=== PATIENT | male | born 1960 | race African-American/Black ===

== ENCOUNTER 2017-12-15 18:05 | Inpatient (IN) | payer BC ==
[2017-12-15] MEDS ORDERED: NORMAL SALINE 1000 ML 1,000 ML IV ONE (18:52)
[2017-12-15] MEDS ORDERED: VANCOMYCIN HCL INJ 1000 MG VIAL IV ONE (19:06)
--- NOTE | 2017-12-15 19:08 | ER Document Report ---
ED Medical Screen (RME) - General Chief Complaint: Weakness Stated Complaint: DIZZY Time Seen by Provider: 12/15/17 18:49 Notes: Patient presents with 2 days of fatigue chills lethargy that became worse today. Patient primary care doctor is Dr. Messer. Patient has history of bilateral lymphedema, he states that his left lower extremity has been swelling and is hot. Denies any recent falls or trauma. He also states he has developed diarrhea today that is been very dark and black. He is not on any blood thinners. Denies any traveling out of the country or camping recently. I have greeted and performed a rapid initial assessment of this patient. A comprehensive ED assessment and evaluation of the patient, analysis of test results and completion of the medical decision making process will be conducted by additional ED providers. PHYSICAL EXAMINATION: GENERAL: Well-appearing, well-nourished and in no acute distress. HEAD: Atraumatic, normocephalic. EYES: Pupils equal round extraocular movements intact, conjunctiva are normal. ENT: Nares patent NECK: Normal range of motion LUNGS: No respiratory distress Musculoskeletal: Normal range of motion, b/l swelling of lower extemities, L>>R , warmth and erythema of left lower extremity NEUROLOGICAL: Normal speech, normal gait. PSYCH: Normal mood, normal affect. SKIN: Warm, Dry, normal turgor, no rashes or lesions noted. TRAVEL OUTSIDE OF THE [place] IN LAST 30 DAYS: No - Related Data Allergies/Adverse Reactions: Dust, Pollen Allergy (Intermediate, Uncoded 01/03/15 08:43) Dry Eyes,WATERY EYES Past Medical History - Past Medical History Cardiac Medical History: Reports: Hx Hypertension Denies: Hx Coronary Artery Disease, Hx Heart Attack Pulmonary Medical History: Reports: Hx Asthma Denies: Hx Bronchitis, Hx COPD, Hx Pneumonia Neurological Medical History: Denies: Hx Cerebrovascular Accident, Hx Seizures Renal/ Medical History: Denies: Hx Peritoneal Dialysis Musculoskeltal Medical History: Denies Hx Arthritis - Immunizations Hx Diphtheria, Pertussis, Tetanus Vaccination: No Physical Exam - Vital signs Vitals: Temp Pulse Resp BP Pulse Ox 101.9 F H 95 16 135/65 H 95 12/15/17 18:10 12/15/17 18:10 12/15/17 18:10 12/15/17 18:10 12/15/17 18:10 Course - Vital Signs Vital signs: Temp Pulse Resp BP Pulse Ox 101.9 F H 95 16 135/65 H 95 12/15/17 18:10 12/15/17 18:10 12/15/17 18:10 12/15/17 18:10 12/15/17 18:10 Doctor's Discharge - Discharge Referrals: SUSAN MESSER MD [Primary Care Provider] - Follow up as needed
[2017-12-15 19:28] LABS: APPEARANCE,URINE CLEAR; BILIRUBIN,URINE NEGATIVE (NEGATIVE); COLOR,URINE YELLOW; GLUCOSE, URINE NEGATIVE (NEGATIVE); KETONES,URINE NEGATIVE (NEGATIVE); LEUKOCYTE ESTERASE,URINE NEGATIVE (NEGATIVE); NITRITE,URINE NEGATIVE (NEGATIVE); PROTEIN,URINE NEGATIVE (NEGATIVE); URINE SPECIFIC GRAVITY 1.014
--- NOTE | 2017-12-15 19:54 | RADIOLOGY REPORT (SQ) ---
EXAM DESCRIPTION: TIBIA FIBULA LEFT COMPLETED DATE/TIME: 12/15/2017 7:35 pm REASON FOR STUDY: swelling COMPARISON: None. NUMBER OF VIEWS: Two views. TECHNIQUE: Two radiographic images acquired of the left tibia and fibula to include the knee and ank le in at least one projection. LIMITATIONS: None. FINDINGS: MINERALIZATION: Normal. BONES: No acute fracture or dislocation. No worrisome bone lesions. SOFT TISSUES: No obvious swelling or foreign body. OTHER: No other significant finding. IMPRESSION: NEGATIVE STUDY OF THE LEFT TIBIA AND FIBULA. NO RADIOGRAPHIC EVIDENCE OF ACUTE INJURY. TECHNICAL DOCUMENTATION: JOB ID: [id number] [employer]- All Rights Reserved Reading location - IP/workstation name: [email or web address]
--- NOTE | 2017-12-15 19:55 | RADIOLOGY REPORT (SQ) ---
EXAM DESCRIPTION: FOOT LEFT COMPLETE COMPLETED DATE/TIME: 12/15/2017 7:35 pm REASON FOR STUDY: swelling COMPARISON: None. NUMBER OF VIEWS: Three views. TECHNIQUE: AP, lateral and oblique radiographic images acquired of the left foot. LIMITATIONS: None. FINDINGS: MINERALIZATION: Normal. BONES: Plantar calcaneal spur. No acute osseous abnormality. JOINTS: No effusions. SOFT TISSUES: Soft tissue swelling. OTHER: No other significant finding. IMPRESSION: Soft tissue swelling with no fracture. Calcaneal spur. TECHNICAL DOCUMENTATION: JOB ID: [id number] [employer]- All Rights Reserved Reading location - IP/workstation name: [email or web address]
[2017-12-15 20:21] LABS: ABSOLUTE BASOPHILS # (AUTO) 0.1 10^3/uL (0.0-0.2); ABSOLUTE LYMPHOCYTES (AUTO) 1.2 10^3/uL (0.5-4.7); ABSOLUTE MONOCYTES (AUTO) 1.1 10^3/uL (0.1-1.4); ABSOLUTE NEUT (AUTO) 11.2 10^3/uL (1.7-8.2); BASOPHILS % (AUTO) 0.5 % (0-2); EOSINOPHILS % (AUTO) 0.2 % (0-6); HEMATOCRIT 39.9 % (37.9-51.0); HEMOGLOBIN 13.3 g/dL (13.5-17.0); MEAN CORPUSCULAR HGB CONC 33.4 g/dL (32.0-36.0); MEAN CORPUSCULAR VOLUME 87 fl (80-97); MONOCYTES % (AUTO) 8.3 % (3-13); PLATELET COUNT 208 10^3/uL (150-450); RED BLOOD COUNT 4.59 10^6/uL (4.35-5.55); TOTAL CELLS COUNTED % (AUTO) 100 %; WHITE BLOOD COUNT 13.7 10^3/uL (4.0-10.5)
[2017-12-15 20:40] LABS: ALANINE AMINOTRANSFERASE 48 U/L (21-72); ALBUMIN 4.2 g/dL (3.5-5.0); ALKALINE PHOSPHATASE 66 U/L (38-126); ANION GAP 12 (5-19); ASPARTATE AMINO TRANSFERASE 49 U/L (17-59); BILIRUBIN,DIRECT 0.3 mg/dL (0.0-0.4); BILIRUBIN,TOTAL 0.9 mg/dL (0.2-1.3); BLOOD UREA NITROGEN 17 mg/dL (7-20); CALCIUM 8.9 mg/dL (8.4-10.2); CARBON DIOXIDE 31 mmol/L (22-30); CHLORIDE 97 mmol/L (98-107); GLUCOSE 106 mg/dL (75-110); POTASSIUM 3.5 mmol/L (3.6-5.0); SODIUM 139.7 mmol/L (137-145)
[2017-12-15] MEDS ORDERED: MORPHINE SULFATE 10 MG/ML INJ IV ONE (21:46)
--- NOTE | 2017-12-15 22:32 | EKG REPORT ---
SEVERITY:- BORDERLINE ECG - SINUS RHYTHM BORDERLINE T WAVE ABNORMALITIES : Confirmed by: Virgei Tate MD 15-Dec-2017 22:31:36
--- NOTE | 2017-12-15 22:47 | ER Document Report ---
ED General - General Chief Complaint: Weakness Stated Complaint: DIZZY Time Seen by Provider: 12/15/17 18:49 Information source: Patient TRAVEL OUTSIDE OF THE [place] IN LAST 30 DAYS: No - HPI Patient complains to provider of: Swelling and pain in the left lower leg Onset: Other - Patient has known history of lymphedema left lower extremity has had worsening swelling and pain over the last day as well as fevers at home and a general feeling of being unwell. Has never had anything like this in the past , it is making it difficult for him to get up and around. Nothing seems to make it any better, nothing seems to make it worse. He does have some pain in the leg which is a throbbing quality. - Related Data Allergies/Adverse Reactions: Dust, Pollen Allergy (Intermediate, Uncoded 01/03/15 08:43) Dry Eyes,WATERY EYES Past Medical History - General Information source: Patient - Social History Smoking Status: Never Smoker Family History: None Patient has suicidal ideation: No Patient has homicidal ideation: No - Past Medical History Cardiac Medical History: Reports: Hx Hypertension Denies: Hx Coronary Artery Disease, Hx Heart Attack Pulmonary Medical History: Reports: Hx Asthma Denies: Hx Bronchitis, Hx COPD, Hx Pneumonia Neurological Medical History: Denies: Hx Cerebrovascular Accident, Hx Seizures Renal/ Medical History: Denies: Hx Peritoneal Dialysis Musculoskeletal Medical History: Denies Hx Arthritis - Immunizations Hx Diphtheria, Pertussis, Tetanus Vaccination: No Review of Systems - Review of Systems -: Yes All other systems reviewed and negative Physical Exam - Vital signs Vitals: Temp Pulse Resp BP Pulse Ox 101.9 F H 95 16 135/65 H 95 12/15/17 18:10 12/15/17 18:10 12/15/17 18:10 12/15/17 18:10 12/15/17 18:10 - General General appearance: Appears well In distress: None - HEENT Head: Normocephalic Eyes: Normal Conjunctiva: Normal - Respiratory Respiratory status: No respiratory distress Chest status: Nontender Breath sounds: Normal Chest palpation: Normal - Cardiovascular Rhythm: Tachycardia Heart sounds: Normal auscultation Murmur: No - Abdominal Inspection: Normal Distension: No distension Bowel sounds: Normal - Back Back: Normal - Extremities General upper extremity: Normal inspection General lower extremity: Other - The lower extremities are swollen, the left greater than the right, there is skin cracking along the left lower extremity inferior to the level of the knee, there is erythema which is notable though it is difficult to distinguish as this patient has dark complexion, skin is warm to the touch no obvious bullae, no disclamation Course - Re-evaluation Re-evalutation: 12/16/17 04:20 This 57-year-old man with a history of lymphedema and presented for evaluation of swelling fever and pain in the lower extremity. On examination he clinically has a cellulitis in the left lower extremity he does feel somewhat unwell generally. Will obtain labs as well as blood cultures and initiate treatment with antibiotics for presumptive staph or strep source. Have contacted on-call hospitalist for admission of this patient. Following admission on-call hospitalist notes that this is a patient of Dr. Santiago and as such he has admitted him to his service. We will plan for continued monitoring in emergency department and assessment is necessary with the expectation of inpatient admission for IV antibiotics and reassessment. Patient's heart rate improved with the administration of fluids and antibiotics as well as Tylenol for fever. - Vital Signs Vital signs: Temp Pulse Resp BP Pulse Ox 101.9 F H 95 16 135/65 H 95 12/15/17 18:10 12/15/17 18:10 12/15/17 18:10 12/15/17 18:10 12/15/17 18:10 - Laboratory Result Diagrams: 12/16/17 02:43 12/16/17 02:43 Laboratory results interpreted by me: 12/15/17 12/15/17 12/15/17 19:00 20:06 20:06 WBC 13.7 H Hgb 13.3 L RDW 15.0 H Seg Neutrophils % 82.0 H Lymphocytes % 9.0 L Absolute Neutrophils 11.2 H Potassium 3.5 L Chloride 97 L Carbon Dioxide 31 H Urine Urobilinogen 2.0 H Discharge - Discharge Clinical Impression: Cellulitis Qualifiers: Site of cellulitis: extremity Site of cellulitis of extremity: lower extremity Laterality: left Qualified Code(s): L03.116 - Cellulitis of left lower limb Condition: Fair Disposition: ADMITTED INPATIENT Admitting Provider: Hospitalist Unit Admitted: Medical Floor
[2017-12-15] MEDS ORDERED: ACETAMINOPHEN 325 MG TABLET PO ONE (22:48)
[2017-12-15] MEDS ORDERED: ONDANSETRON HCL INJ/PF 4 MG/2 ML SDV IV PRN (23:41)
[2017-12-15] MEDS ORDERED: MAG HYDROX/AL HYDROX/SIMETH SUSP 30 ML UDCUP PO PRN (23:41)
[2017-12-15] MEDS ORDERED: ZOLPIDEM TARTRATE 5 MG TABLET PO PRN (23:41)
[2017-12-15] MEDS ORDERED: MAGNESIUM HYDROXIDE SUSP 30 ML UDCUP PO PRN (23:41)
[2017-12-15] MEDS ORDERED: ACETAMINOPHEN 325 MG TABLET PO PRN (23:41)
[2017-12-15] MEDS ORDERED: PIPERACILLIN/TAZOBACTAM 3.375 GM VIAL IV SCH (23:45)
[2017-12-15] MEDS ORDERED: MORPHINE SULFATE 10 MG/ML INJ IV PRN (23:53)
[2017-12-16] MEDS: OXYCODONE-ACETAMINOPHEN 5-325 MG TABLET PO PRN ×5 (01:07→21:45)
[2017-12-16] MEDS ORDERED: (PENDING PHARMACY ID) (Oxycodone Hcl/Acetaminophen [Percocet 10-325 Mg Tablet] 1 EACH) PO PRN (02:17)
[2017-12-16] MEDS ORDERED: OXYCODONE-ACETAMINOPHEN 5-325 MG TABLET PO PRN (02:17)
--- NOTE | 2017-12-16 02:20 | PDOC H&P ---
History of Present Illness Admission Date/PCP: 12/15/17 23:00 SUSAN MESSER MD Patient complains of: Chills, dizziness, left lower extremity swelling and pain History of Present Illness: JERZY DELGADO is a 57 year old -[place] pleasant male with history of hypertension and asthma as well as left lower extremity lymphedema presented to the emergency room with acute onset of worsening left lower extremity pain and swelling over the last couple of days as well as chills and dizziness since yesterday. He denied any nausea or vomiting or abdominal pain. He admitted to mild diarrhea with dark stools however with no melena or bright red bleeding per rectum. The patient presented to the emergency room he was febrile with a temperature of 101.9, pulse 95, respiratory rate of 16, blood pressure 135/65 and a pulse oximetry of 95% on room air. His labs were remarkable for borderline potassium at 3.5 a CO2 of 31 and chloride of 97. His CBC showed leukocytosis of 13.7 with neutrophilia. Hemoglobin was 13.3 hematocrit 39.9 with platelets of 208. Urinalysis was unremarkable. Tib-fib x-ray as well as foot x-ray showed no evidence for fracture. EKG showed normal sinus rhythm with a rate of 83 and flat T waves in aVL. The patient was given hydration with IV normal saline as well as IV morphine sulfate 4 mg and vancomycin as well as Tylenol 650 mg p.o. He will be admitted to a medically monitored bed Dr. Messer for further evaluation and management. Past Medical History Cardiac Medical History: Reports: Hypertension Denies: Coronary Artery Disease, Myocardial Infarction Pulmonary Medical History: Reports: Asthma Denies: Bronchitis, Chronic Obstructive Pulmonary Disease (COPD), Pneumonia Neurological Medical History: Denies: Seizures Musculoskeltal Medical History: Denies: Arthritis Hematology: Denies: Anemia Past Surgical History Past Surgical History: Reports: Herniorrhaphy Social History Smoking Status: Never Smoker Frequency of Alcohol Use: None Hx Recreational Drug Use: No Family History Family History: DM, Hypertension, Malignancy Parental Family History Reviewed: Yes Children Family History Reviewed: Yes Sibling(s) Family History Reviewed.: Yes Medication/Allergy Home Medications: Ergocalciferol (Vitamin D2) [Vitamin D2] 1.25 mg PO Q7D 11/08/14 Metformin HCl [Glucophage] 1,000 mg PO DAILY 11/08/14 Metoprolol Succinate 200 mg PO DAILY 11/08/14 Olmesartan/Amlodipin/Hcthiazid [Tribenzor 40-10-25 mg Tablet] 1 each PO DAILY Oxycodone HCl/Acetaminophen [Percocet 10-325 mg Tablet] 1 each PO ASDIR PRN 05/25 Tamsulosin HCl 0.4 mg PO DAILY 11/08/14 Oxycodone HCl/Acetaminophen [Percocet 5-325 mg Tablet] 1 - 2 tab PO ASDIR PRN # 15 tablet 01/10/15 Allergies/Adverse Reactions: Dust, Pollen Allergy (Intermediate, Uncoded 01/03/15 08:43) Dry Eyes,WATERY EYES Review of Systems Review of Systems: As per history of present illness. All pertinent systems were reviewed above. Constitutional, HEENT, cardiovascular, respiratory, GI, , musculoskeletal, neuro, psychiatric, endocrine, integumentary and hematologic systems were reviewed and are otherwise negative/unremarkable except for positive findings mentioned above in the HPI. Physical Exam Vital Signs: Temp Pulse Resp BP Pulse Ox 101.9 F H 95 16 135/65 H 95 12/15/17 18:10 12/15/17 18:10 12/15/17 18:10 12/15/17 18:10 12/15/17 18:10 Exam: Generally: Pleasant middle-aged obese -[place] male in no acute distress Vital signs-as listed Head - atraumatic, normocephalic. Pupils - equal, round and reactive to light and accommodation. Extraocular movements are intact. No scleral icterus. Oropharynx - moist mucous membranes and tongue. No pharyngeal erythema or exudate. Neck - supple. No JVD. Carotid pulses 2+ bilaterally. No carotid bruits. No palpable thyromegaly or lymphadenopathy. Cardiovascular - regular rate and rhythm. Normal S1 and S2. No murmurs, gallops or rubs. Lungs - clear to auscultation bilaterally. Abdomen - soft and nontender. Positive bowel sounds. No palpable organomegaly or masses. Extremities -diffuse left lower extremity nonpitting edema with slight pitting in the left ankle and foot with mild warmth and tenderness over the lower leg and to less extent his thigh with no streaking or signs of lymphangitis and no tender lymphadenopathy despite the fact that he was having left groin tenderness yesterday. He had no clubbing or cyanosis. Neuro - grossly non-focal. Skin - no rashes. and rectal exam - deferred. Results Impressions: Foot X-Ray 12/15/17 19:05 IMPRESSION: Soft tissue swelling with no fracture. Calcaneal spur. Tibia/Fibula X-Ray 12/15/17 19:05 IMPRESSION: NEGATIVE STUDY OF THE LEFT TIBIA AND FIBULA. NO RADIOGRAPHIC EVIDENCE OF ACUTE INJURY. Assessment & Plan - Diagnosis (1) Cellulitis of left lower extremity Is this a current diagnosis for this admission?: Yes Plan: The patient will be admitted to a medically monitored bed. He will be placed on continued antibiotic therapy with IV vancomycin and Zosyn. Will follow blood cultures. Pain management will be provided. Warm compresses will be utilized. I counseled the patient for smoking cessation and the patient will receive further counseling here. (2) Sepsis Is this a current diagnosis for this admission?: Yes Plan: The patient will be placed on IV vancomycin and Zosyn. We will follow his blood cultures. He will be hydrated with IV normal saline. His initial lactic acid was normal at 1.2. Will follow this level. (3) Hypertension Is this a current diagnosis for this admission?: Yes Plan: We will continue Toprol-XL and Tribenzor. (4) Type 2 diabetes mellitus Qualifiers: Diabetes mellitus prison insulin use: without prison use Is this a current diagnosis for this admission?: Yes Plan: We will place the patient on supplemental coverage with Humalog and hold his metformin. (5) Asthma Is this a current diagnosis for this admission?: Yes Plan: No current exacerbation (6) DVT prophylaxis Is this a current diagnosis for this admission?: Yes Plan: Subcu tenderness Lovenox. Will start with prophylactic dose pending left lower extremity venous Doppler to rule out DVT. - Plan Summary Plan Summary: The plan of care was discussed in details with the patient. I answered all questions. The patient agreed to proceed with the above-mentioned plan. The patient is presumably full code. This note was created by [employer] software and may contain typo errors that may have not been proofread.
[2017-12-16] MEDS ORDERED: DEXTROSE 40% GEL 15 GM TUBE PO PRN ×2 (02:22)
[2017-12-16] MEDS ORDERED: INSULIN LISPRO 100 UNIT/ML 3 ML VIAL SUBCUT PRN (02:22)
[2017-12-16] MEDS ORDERED: GLUCAGON,HUMAN RECOMB 1 MG INJ IM PRN (02:22)
[2017-12-16] MEDS ORDERED: DEXTROSE 50%-WATER 25 GM/50 ML DISP.SYRIN IV PRN ×2 (02:22)
[2017-12-16] MEDS ORDERED: (PENDING PHARMACY ID) (Ergocalciferol (Vitamin D2) [Vitamin D2] 1.25 MG) PO SCH (02:30)
[2017-12-16 03:04] LABS: ABSOLUTE EOSINOPHILS # (AUTO) 0.1 10^3/uL (0.0-0.6); ABSOLUTE MONOCYTES (AUTO) 1.5 10^3/uL (0.1-1.4); ABSOLUTE NEUT (AUTO) 9.1 10^3/uL (1.7-8.2); BASOPHILS % (AUTO) 0.4 % (0-2); EOSINOPHILS % (AUTO) 0.5 % (0-6); HEMATOCRIT 35.8 % (37.9-51.0); LYMPHOCYTES % (AUTO) 15.9 % (13-45); MEAN CORPUSCULAR HEMOGLOBIN 29.1 pg (27.0-33.4); MEAN CORPUSCULAR HGB CONC 33.6 g/dL (32.0-36.0); MEAN CORPUSCULAR VOLUME 86 fl (80-97); MONOCYTES % (AUTO) 11.8 % (3-13); PLATELET COUNT 190 10^3/uL (150-450); RED BLOOD COUNT 4.15 10^6/uL (4.35-5.55); RED CELL DISTRIBUTION WIDTH 14.7 % (11.5-14.0); SEGMENTED NEUTROPHILS % (AUTO) 71.4 % (42-78); TOTAL CELLS COUNTED % (AUTO) 100 %; WHITE BLOOD COUNT 12.7 10^3/uL (4.0-10.5)
[2017-12-16 03:09] LABS: ANION GAP 11 (5-19); BLOOD UREA NITROGEN 14 mg/dL (7-20); CALCIUM 8.5 mg/dL (8.4-10.2); CARBON DIOXIDE 28 mmol/L (22-30); CHLORIDE 101 mmol/L (98-107); GLUCOSE 99 mg/dL (75-110); POTASSIUM 3.4 mmol/L (3.6-5.0); SODIUM 139.5 mmol/L (137-145)
[2017-12-16] MEDS ORDERED: PIPERACILLIN/TAZOBACTAM 3.375 GM VIAL IV ONE (05:30)
[2017-12-16] MEDS: NORMAL SALINE 1000 ML 1,000 ML IV PRN ×2 (06:56→21:47)
[2017-12-16] MEDS ORDERED: VANCOMYCIN HCL INJ 1000 MG VIAL IV SCH (10:00)
[2017-12-16] MEDS ORDERED: (PENDING PHARMACY ID) (Olmesartan/Amlodipin/Hcthiazid [Tribenzor 40-10-25 Mg Tablet] 1 EAC PO SCH (10:00)
--- NOTE | 2017-12-16 10:36 | RADIOLOGY REPORT (SQ) ---
EXAM DESCRIPTION: VENOUS UNILATERAL LOWER COMPLETED DATE/TIME: 12/16/2017 10:24 am REASON FOR STUDY: Left lower extremity swelling and pain COMPARISON: None. TECHNIQUE: Dynamic and static figueroa scale and color images acquired of the left leg venous system. Se lected spectral images acquired with additional compression and augmentation maneuvers. The contralat eral common femoral vein and saphenofemoral junction were also imaged. Images stored on PACS. LIMITATIONS: None. FINDINGS: LEFT COMMON FEMORAL: Normal phasicity, compression and augmentation. No visualized echogenic material on g ray scale. No defects on color images. FEMORAL: Normal compression and augmentation. No visualized echogenic material on figueroa scale. No defe cts on color images. POPLITEAL: Normal compression, augmentation. No visualized echogenic material on figueroa scale. No defec ts on color images. CALF VESSELS: Normal compression, augmentation. No visualized echogenic material on figueroa scale. No de fects on color images. GSV and SSV: Normal compression, augmentation. No visualized echogenic material on figueroa scale. No def ects on color images. ANY DEEP VENOUS INSUFFICIENCY: Not evaluated. ANY EVIDENCE OF POPLITEAL CYST: No. OTHER: No other significant finding. RIGHT COMMON FEMORAL VEIN AND SAPHENOFEMORAL JUNCTION: Normal phasicity, compression and augmentation. No visualized echogenic material on figueroa scale. No de fects on color images. IMPRESSION: NO EVIDENCE OF DVT OR SVT IN THE LEFT LEG. TECHNICAL DOCUMENTATION: JOB ID: [id number] [employer]- All Rights Reserved Reading location - IP/workstation name: [email or web address]
[2017-12-16] MEDS: METOPROLOL SUCCINATE 50 MG TAB.SR.24H PO SCH (10:51)
[2017-12-16] MEDS: TAMSULOSIN HCL 0.4 MG CAP.SR.24H PO SCH (10:51)
[2017-12-16] MEDS: ENOXAPARIN SODIUM INJ 40 MG/0.4 ML DISP.SYRIN SUBCUT SCH (10:51)
[2017-12-16] MEDS: VANCOMYCIN HCL 1,000 MG in DEXTROSE 5%-WATER 250 ML IV SCH ×2 (11:01→17:46)
[2017-12-17] MEDS: VANCOMYCIN HCL 1,000 MG in DEXTROSE 5%-WATER 250 ML IV SCH ×3 (02:35→18:22)
[2017-12-17] MEDS: OXYCODONE-ACETAMINOPHEN 5-325 MG TABLET PO PRN ×6 (02:39→23:35)
[2017-12-17 04:45] LABS: ABSOLUTE BASOPHILS # (AUTO) 0.1 10^3/uL (0.0-0.2); ABSOLUTE EOSINOPHILS # (AUTO) 0.2 10^3/uL (0.0-0.6); ABSOLUTE LYMPHOCYTES (AUTO) 1.9 10^3/uL (0.5-4.7); BASOPHILS % (AUTO) 0.9 % (0-2); EOSINOPHILS % (AUTO) 2.9 % (0-6); HEMATOCRIT 35.1 % (37.9-51.0); HEMOGLOBIN 11.9 g/dL (13.5-17.0); LYMPHOCYTES % (AUTO) 26.7 % (13-45); MEAN CORPUSCULAR HEMOGLOBIN 29.5 pg (27.0-33.4); MEAN CORPUSCULAR HGB CONC 33.8 g/dL (32.0-36.0); MEAN CORPUSCULAR VOLUME 87 fl (80-97); MONOCYTES % (AUTO) 13.8 % (3-13); PLATELET COUNT 181 10^3/uL (150-450); RED BLOOD COUNT 4.03 10^6/uL (4.35-5.55); RED CELL DISTRIBUTION WIDTH 14.8 % (11.5-14.0); SEGMENTED NEUTROPHILS % (AUTO) 55.7 % (42-78); TOTAL CELLS COUNTED % (AUTO) 100 %; WHITE BLOOD COUNT 7.2 10^3/uL (4.0-10.5)
[2017-12-17 04:57] LABS: ANION GAP 11 (5-19); BLOOD UREA NITROGEN 11 mg/dL (7-20); CALCIUM 8.4 mg/dL (8.4-10.2); CARBON DIOXIDE 28 mmol/L (22-30); CHLORIDE 99 mmol/L (98-107); GLUCOSE 131 mg/dL (75-110); POTASSIUM 3.3 mmol/L (3.6-5.0); SODIUM 138.3 mmol/L (137-145)
[2017-12-17] MEDS ORDERED: ONDANSETRON HCL INJ/PF 4 MG/2 ML SDV IV PRN (07:30)
[2017-12-17] MEDS: AMLODIPINE BESYLATE 10 MG TABLET PO SCH (11:06)
[2017-12-17] MEDS: METOPROLOL SUCCINATE 50 MG TAB.SR.24H PO SCH (11:07)
[2017-12-17] MEDS: LOSARTAN POTASSIUM 50 MG TABLET PO SCH (11:07)
[2017-12-17] MEDS: HYDROCHLOROTHIAZIDE 25 MG TABLET PO SCH (11:07)
[2017-12-17] MEDS: ENOXAPARIN SODIUM INJ 40 MG/0.4 ML DISP.SYRIN SUBCUT SCH (11:08)
[2017-12-17] MEDS: TAMSULOSIN HCL 0.4 MG CAP.SR.24H PO SCH (11:08)
[2017-12-17] MEDS: NORMAL SALINE 1000 ML 1,000 ML IV PRN (11:20)
[2017-12-17 14:14] LABS: VANCOMYCIN,TROUGH 10.7 ug/mL (5.0-20.0)
--- NOTE | 2017-12-17 20:40 | PDOC DISCHARGE SUMMARY ---
General - Admit/Disc Date/PCP Admission Date/Primary Care Provider: 12/15/17 23:00 SUSAN MESSER MD Discharge Date: 12/17/17 - Discharge Diagnosis (1) Cellulitis of left lower extremity Is this a current diagnosis for this admission?: Yes (2) Lymphedema Is this a current diagnosis for this admission?: Yes (3) Hypertension Is this a current diagnosis for this admission?: Yes - Additional Information Resuscitation Status: Full Code Prescriptions: Clindamycin HCl 600 mg PO Q8H #30 capsule Home Medications: Olmesartan/Amlodipin/Hcthiazid [Tribenzor 40-10-25 mg Tablet] 1 each PO DAILY Tamsulosin HCl 0.4 mg PO DAILY 11/08/14 Acetaminophen with Codeine [Acetaminophen-Cod #4 Tablet] 1 each PO Q6HP PRN 12/26 Clindamycin HCl 600 mg PO Q8H #30 capsule 12/17/17 History of Present Illness History of Present Illness: JERZY DELGADO is a 57 year old male,He was admitted when he presented with fever chills, cellulitis of the left lower leg with a background of lymphedema Hospital Course Hospital Course: Patient was admitted initially by hospitalist, is a patient I follow in the office he presented to the emergency room for evaluation of fever, chills, left lower extremity swelling he has underlining lymphedema involving both legs. The left leg was bigger than the right leg venous Doppler was done, negative for deep vein thrombosis, he was diagnosed with cellulitis of the left leg he was admitted by the hospitalist on he was started on IV vancomycin and also Zosyn. Physical Exam Vital Signs: Temp Pulse Resp BP Pulse Ox 98.6 F 75 16 133/78 H 94 12/17/17 07:00 12/17/17 19:00 12/17/17 07:00 12/17/17 07:00 12/17/17 07:00 Intake & Output 12/16/17 12/17/17 12/18/17 06:59 06:59 06:59 Intake Total 1000 2816 1780 Output Total 200 Balance 1000 2616 1780 Weight 118.2 kg General appearance: PRESENT: no acute distress Head exam: PRESENT: atraumatic, normocephalic Eye exam: PRESENT: conjunctiva pink, EOMI, PERRLA Ear exam: PRESENT: normal external ear exam Mouth exam: PRESENT: moist, tongue midline Neck exam: PRESENT: full ROM Respiratory exam: PRESENT: clear to auscultation valeria Cardiovascular exam: PRESENT: RRR, +S1, +S2 Pulses: PRESENT: normal dorsalis pedis pul, +2 pedal pulses bilateral Vascular exam: PRESENT: normal capillary refill GI/Abdominal exam: PRESENT: normal bowel sounds, soft Rectal exam: PRESENT: deferred Musculoskeletal exam: PRESENT: other - There is bilateral lower extremity swelling, consistent with lymphedema, the left leg is inflamed Neurological exam: PRESENT: alert, awake, oriented to person, oriented to place , oriented to time, oriented to situation, CN II-XII grossly intact Psychiatric exam: PRESENT: appropriate affect, normal mood Skin exam: PRESENT: dry, intact, warm Results Laboratory Results: 12/17/17 04:26 12/17/17 04:26 12/17/17 12/17/17 04:26 04:26 WBC 7.2 RBC 4.03 L Hgb 11.9 L Hct 35.1 L MCV 87 MCH 29.5 MCHC 33.8 RDW 14.8 H Plt Count 181 Seg Neutrophils % 55.7 Lymphocytes % 26.7 Monocytes % 13.8 H Eosinophils % 2.9 Basophils % 0.9 Absolute Neutrophils 4.0 Absolute Lymphocytes 1.9 Absolute Monocytes 1.0 Absolute Eosinophils 0.2 Absolute Basophils 0.1 Sodium 138.3 Potassium 3.3 L Chloride 99 Carbon Dioxide 28 Anion Gap 11 BUN 11 Creatinine 0.99 Est GFR ( Amer) > 60 Est GFR (Non-Af Amer) > 60 Glucose 131 H Calcium 8.4 Impressions: Foot X-Ray 12/15/17 19:05 IMPRESSION: Soft tissue swelling with no fracture. Calcaneal spur. Tibia/Fibula X-Ray 12/15/17 19:05 IMPRESSION: NEGATIVE STUDY OF THE LEFT TIBIA AND FIBULA. NO RADIOGRAPHIC EVIDENCE OF ACUTE INJURY. Venous Doppler Study 12/16/17 02:02 IMPRESSION: NO EVIDENCE OF DVT OR SVT IN THE LEFT LEG. Qualifiers - * PATIENT BEING DISCHARGED WITH ANY OF THE FOLLOWING DIAGNOSIS: No
[2017-12-17 21:27] LABS: ALANINE AMINOTRANSFERASE 45 U/L (21-72); ALBUMIN 3.5 g/dL (3.5-5.0); ALKALINE PHOSPHATASE 66 U/L (38-126); ANION GAP 11 (5-19); ASPARTATE AMINO TRANSFERASE 33 U/L (17-59); BILIRUBIN,DIRECT 0.3 mg/dL (0.0-0.4); BILIRUBIN,TOTAL 0.4 mg/dL (0.2-1.3); BLOOD UREA NITROGEN 14 mg/dL (7-20); CALCIUM 8.6 mg/dL (8.4-10.2); CARBON DIOXIDE 31 mmol/L (22-30); CHLORIDE 95 mmol/L (98-107); GLUCOSE 99 mg/dL (75-110); POTASSIUM 3.5 mmol/L (3.6-5.0); SODIUM 137.1 mmol/L (137-145); TOTAL PROTEIN 6.6 g/dL (6.3-8.2)
[2017-12-18] MEDS: VANCOMYCIN HCL 1,000 MG in DEXTROSE 5%-WATER 250 ML IV SCH (02:23)
[2017-12-18] MEDS: OXYCODONE-ACETAMINOPHEN 5-325 MG TABLET PO PRN ×2 (04:30→10:41)
[2017-12-18 07:47] LABS: HEMATOCRIT 38.5 % (37.9-51.0); MEAN CORPUSCULAR HEMOGLOBIN 29.2 pg (27.0-33.4); MEAN CORPUSCULAR HGB CONC 33.7 g/dL (32.0-36.0); MEAN CORPUSCULAR VOLUME 87 fl (80-97); PLATELET COUNT 234 10^3/uL (150-450); RED BLOOD COUNT 4.43 10^6/uL (4.35-5.55); RED CELL DISTRIBUTION WIDTH 14.7 % (11.5-14.0); WHITE BLOOD COUNT 6.4 10^3/uL (4.0-10.5)
[2017-12-18 08:00] LABS: ANION GAP 16 (5-19); BLOOD UREA NITROGEN 12 mg/dL (7-20); CALCIUM 8.4 mg/dL (8.4-10.2); CARBON DIOXIDE 26 mmol/L (22-30); CHLORIDE 96 mmol/L (98-107); POTASSIUM 3.8 mmol/L (3.6-5.0); SODIUM 138.2 mmol/L (137-145)
[2017-12-18 08:01] LABS: GLUCOSE 98 mg/dL (75-110)
[2017-12-18 08:22] LABS: ABSOLUTE LYMPHOCYTES# (MANUAL) 2.7 10^3/uL (0.5-4.7); ABSOLUTE MONOCYTES # (MANUAL) 0.8 10^3/uL (0.1-1.4); ABSOLUTE NEUTROPHILS# (MANUAL) 2.4 10^3/uL (1.7-8.2); BASOPHILS % (MANUAL) 0 % (0-2); EOSINOPHILS % (MANUAL) 7 % (0-6); LYMPHOCYTES % (MANUAL) 42 % (13-45); MONOCYTES % (MANUAL) 13 % (3-13); SEGMENTED NEUTROPHILS % (MAN) 38 % (42-78); TOTAL CELLS COUNTED 100
[2017-12-18 08:23] LABS: PLATELET COMMENT ADEQUATE; POLYCHROMASIA 1+; TOXIC GRANULATION SLIGHT; TOXIC VACUOLATION PRESENT
[2017-12-18] MEDS: HYDROCHLOROTHIAZIDE 25 MG TABLET PO SCH (10:31)
[2017-12-18] MEDS: AMLODIPINE BESYLATE 10 MG TABLET PO SCH (10:32)
[2017-12-18] MEDS: LOSARTAN POTASSIUM 50 MG TABLET PO SCH (10:32)
[2017-12-18] MEDS: TAMSULOSIN HCL 0.4 MG CAP.SR.24H PO SCH (10:32)
[2017-12-18] MEDS: METOPROLOL SUCCINATE 50 MG TAB.SR.24H PO SCH (10:32)
[2017-12-18] MEDS: ENOXAPARIN SODIUM INJ 40 MG/0.4 ML DISP.SYRIN SUBCUT SCH (10:33)
[2017-12-18 11:17] VITALS: BP 129/70
[2017-12-23] MEDS ORDERED: ERGOCALCIFEROL (VITAMIN D2) 50000 UNIT (1.25 MG) CAPSULE PO SCH (08:00)
== END 2017-12-18 11:30 | disposition home or self-care (01) | DRG 603 ==
LOC: ER 18:05 → EH 23:00 → 5 12-16 14:30
PROVIDERS: ADMIT Family Medicine; ATTEND Internal Medicine
DX: L03.116 Cellulitis of left lower limb (principal); I10 Essential (primary) hypertension; I89.0 Lymphedema, not elsewhere classified; J45.909 Unspecified asthma, uncomplicated; M77.32 Calcaneal spur, left foot; E66.9 Obesity, unspecified; Z68.36 Body mass index [BMI] 36.0-36.9, adult; Z91.048 Other nonmedicinal substance allergy status; Z83.3 Family history of diabetes mellitus; Z80.9 Family history of malignant neoplasm, unspecified; Z82.49 Family history of ischemic heart disease and other diseases of the circulatory system
CPT/HCPCS: 36415; 80048; 80053; 80202; 81001; 82962; 83036; 83605; 83735; 85025; 87040; 93005; 93010; 93971; 96361; 96365; 96366; 96375; 99285; J1650; J2270; J2405; J2543; J3370; J3490; J7030; J7060

== ENCOUNTER → 2018-01-15 | Outpatient (CLI) | payer BC ==
--- NOTE | 2018-01-15 16:45 | RADIOLOGY REPORT (SQ) ---
EXAM DESCRIPTION: KNEE LEFT 2 VIEWS COMPLETED DATE/TIME: 01/15/2018 4:35 pm REASON FOR STUDY: PAIN IN LEFT KNEE COMPARISON: None. NUMBER OF VIEWS: Two views. TECHNIQUE: AP and lateral radiographic images acquired of the left knee. LIMITATIONS: None. FINDINGS: MINERALIZATION: Normal. BONES: No acute fracture or dislocation. No worrisome bone lesions. No significant osteophytes. JOINT: No effusion. No chondrocalcinosis. OTHER: No other significant finding. IMPRESSION: NEGATIVE STUDY OF THE LEFT KNEE. NO EXPLANATION FOR PAIN. TECHNICAL DOCUMENTATION: JOB ID: [id number] [employer]- All Rights Reserved Reading location - IP/workstation name: [email or web address]
== END ==
LOC: OD 16:20
PROVIDERS: ATTEND Internal Medicine
DX: M25.562 Pain in left knee (principal)

== ENCOUNTER → 2020-04-24 | Outpatient (CLI) | payer BC ==
--- NOTE | 2020-04-24 13:57 | RADIOLOGY REPORT (SQ) ---
EXAM DESCRIPTION: HIP BILATERAL IMAGES COMPLETED DATE/TIME: 04/24/2020 1:26 pm REASON FOR STUDY: (M16.0)BILATERAL PRIMARY OSTEOARTHRITIS OF HIP M16.0 BILATERAL PRIMARY OSTEOARTHR ITIS OF HIP COMPARISON: None. NUMBER OF VIEWS: Two views. TECHNIQUE: AP pelvis and additional frog legview of the right and left hip. LIMITATIONS: None. FINDINGS: MINERALIZATION: Normal. PRIMARY HIP: No fracture or dislocation. No worrisome bone lesions. No contour deformity. No joint space narrowing. OPPOSITE HIP: No fracture or dislocation. No worrisome bone lesions. Limited views. PUBIS AND ISCHIUM: No fracture. PELVIS: No fracture. SACRUM: No fracture or dislocation. No worrisome bone lesions. LOWER LUMBAR SPINE: No fracture or dislocation. No worrisome bone lesions. No significant disc disea se. SOFT TISSUES: No findings. OTHER: No other significant finding. IMPRESSION: NO ACUTE FINDINGS OF THE RIGHT AND LEFT HIPS AND PELVIS. NO EXPLANATION FOR PAIN. TECHNICAL DOCUMENTATION: JOB ID: [id number] [employer]- All Rights Reserved Reading location - IP/workstation name: [email or web address]
== END ==
LOC: RAD 13:08
PROVIDERS: ATTEND Internal Medicine
DX: M16.0 Bilateral primary osteoarthritis of hip (principal)
CPT/HCPCS: 73522